=== PATIENT | male | born 1950 | race Caucasian/White ===

== ENCOUNTER 2018-07-12 07:07 | Emergency (ER) | payer MEDICARE, OTHER ==
[~2018-07-12] VITALS: Ht 172.7 cm; Wt 68.0 kg
[2018-07-12] MEDS ORDERED: OLANZAPINE 10 MG VIAL IM ONE ×4 (07:25→09:00)
--- NOTE | 2018-07-12 07:25 | NUR ---
SHERRI, FOUND HIM AT [facility] IN THE BOX, +SI, PER EMS HE RAN INTO TRAFFIC. TO ER BED 15, HOOKED TO MONITOR, KEPT WARM AND SAFE, AWAITING MD VALERIO.
--- NOTE | 2018-07-12 07:26 | NUR ---
DR MASTERS AT BEDSIDE
[2018-07-12 07:45] LABS: BASOPHILS # (AUTO) 0.1 /CMM (0.0-0.2); BASOPHILS % (AUTO) 1.4 % (0.0-2.0); EOSINOPHILS % (AUTO) 1.2 % (0.0-6.0); HEMATOCRIT 43 % (39-51); HEMOGLOBIN 14.1 g/dL (13.5-17.5); LYMPHOCYTES # (AUTO) 1.9 /CMM (0.8-4.8); MEAN CORPUSCULAR HGB CONC 33 g/dl (31.0-36.0); MEAN CORPUSCULAR VOLUME 88 fL (80-96); MONOCYTES # (AUTO) 0.5 /CMM (0.1-1.30); MONOCYTES % (AUTO) 6.6 % (2.0-12.0); NEUTROPHILS # (AUTO) 4.6 /CMM (1.8-8.9); NEUTROPHILS % (AUTO) 63.8 % (43.0-81.0); PLATELET COUNT (AUTO) 283 /CMM (150-450); RED BLOOD CELL COUNT(AUTO) 4.85 MIL/uL (4.5-6.0); WHITE BLOOD COUNT (AUTO) 7.2 K/uL (4.3-11.0)
[2018-07-12 07:51] LABS: CALCIUM, SERUM 8.6 mg/dL (8.5-10.1); POTASSIUM 4.4 mmol/L (3.5-5.1)
[2018-07-12 08:04] LABS: ALBUMIN 3.7 g/dL (3.4-5.0); BILIRUBIN,DIRECT 0.1 mg/dL (0.0-0.2); BILIRUBIN,TOTAL 0.4 mg/dL (0.2-1.0); SALICYLATE 0.8 mg/dL (2.8-20.0)
--- NOTE | 2018-07-12 08:12 | NUR ---
PT REMOVING MONITORING LINES, TRYING TO GET OUT OF BED AND WANTS TO LEAVE HOSPITAL. AWARE, SECUTITY, RN AND TECH ASKED THE PATIENT TO GO BACK TO BED. PT STILL INSISTING TO GO. MD VERBALLY ORDERED MEDICAL RESTRAINTS.
--- NOTE | 2018-07-12 15:30 | NUR ---
PROVIDED W MEAL TRAY. TOLERATED PO WELL.
[2018-07-12 16:07] LABS: APPEARANCE,URINE CLEAR (CLEAR); BILIRUBIN,URINE NEGATIVE (NEGATIVE); BLOOD, URINE NEGATIVE Ery/uL (NEGATIVE); COLOR,URINE YELLOW (YELLOW); KETONES,URINE NEGATIVE (NEGATIVE); LEUKOCYTE ESTERASE ,URINE NEGATIVE (NEGATIVE); NITRITE, URINE NEGATIVE (NEGATIVE); PROTEIN,URINE NEGATIVE (NEGATIVE); UGLUCOSE NEGATIVE (NEGATIVE)
--- NOTE | 2018-07-12 16:12 | NUR ---
HAYDEE FROM CRISIS TEAM CALLED TO BE UPDATED THAT PT IS NOT AWAKE AND URINE SAMPLE HAS BEEN COLLECTED
[2018-07-12 16:16] LABS: BACTERIA,URINE None seen /HPF (None Seen); RBC,URINE 0-2 /HPF (0-2); SQUAMOUS EPITHELIAL CELL,UR 0-2 /HPF (None Seen); URINE AMORPHOUS PHOSPHATES Many /HPF (None Seen); WBC,URINE 0-2 /HPF (0-3)
[2018-07-12 16:30] VITALS: BP 128/84
--- NOTE | 2018-07-12 16:35 | NUR ---
TEACHER VOCAL PINKY AT BEDSIDE
--- NOTE | 2018-07-12 16:46 | NUR ---
IV removed. Catheter intact and site benign. Pressure and 4x4 applied to site. No bleeding noted. name band removed. Patient given written and verbal discharge instructions. Patient verbalizes understanding of instructions. Patient is ambulatory with steady gait. Wearing jacket, longsleeves, khaki pants and rubbershoes. Refuses offer of usp placement. Patient given list of available shelters in surrounding area. Pt given sandwich before discharge.
== END 2018-07-12 16:52 | disposition home or self-care (01) ==
LOC: ER 07:10
DX: F10.129 Alcohol abuse with intoxication, unspecified (principal); Y90.7 Blood alcohol level of 200-239 mg/100 ml; Z59.0 Homelessness; Z04.6 Encounter for general psychiatric examination, requested by authority
CPT/HCPCS: 36415; 80048; 80076; 80305; 80307 ×2; 81001; 85025; 96372 ×2; 99283; G0480; J3490 ×2; 81000-TC

== ENCOUNTER 2018-09-25 14:10 | Emergency (ER) | payer MEDICARE, OTHER ==
[~2018-09-25] VITALS: Ht 177.8 cm; Wt 70.3 kg
[2018-09-25] MEDS ORDERED: LIDOCAINE 1%-EPI 1:100,000 20 ML VIAL ONE (14:29)
[2018-09-25 14:53] LABS: BASOPHILS # (AUTO) 0.1 /CMM (0.0-0.2); BASOPHILS % (AUTO) 1.3 % (0.0-2.0); EOSINOPHILS % (AUTO) 0.9 % (0.0-6.0); HEMATOCRIT 40 % (39-51); HEMOGLOBIN 13.2 g/dL (13.5-17.5); LYMPHOCYTES # (AUTO) 1.4 /CMM (0.8-4.8); LYMPHOCYTES % (AUTO) 24.1 % (20.0-44.0); MEAN CORPUSCULAR HGB CONC 33 g/dl (31.0-36.0); MEAN CORPUSCULAR VOLUME 88 fL (80-96); MONOCYTES # (AUTO) 0.5 /CMM (0.1-1.30); MONOCYTES % (AUTO) 8.4 % (2.0-12.0); NEUTROPHILS # (AUTO) 3.9 /CMM (1.8-8.9); NEUTROPHILS % (AUTO) 65.3 % (43.0-81.0); PLATELET COUNT (AUTO) 263 /CMM (150-450); RED BLOOD CELL COUNT(AUTO) 4.56 MIL/uL (4.5-6.0); WHITE BLOOD COUNT (AUTO) 5.9 K/uL (4.3-11.0)
[2018-09-25 15:00] LABS: CALCIUM, SERUM 8.5 mg/dL (8.5-10.1); CARBON DIOXIDE 26 mmol/L (21-32); CHLORIDE 107 mmol/L (98-107); CREATININE 1.1 mg/dL (0.6-1.3); GLUCOSE 101 mg/dL (74-106); POTASSIUM 4.1 mmol/L (3.5-5.1); SODIUM SERUM 141 mmol/L (136-145); UREA NITROGEN, BLOOD 29 mg/dL (7-18)
[2018-09-25] MEDS ORDERED: HALOPERIDOL 1 MG TABLET PO ONE (15:00)
[2018-09-25] MEDS ORDERED: diphenhydrAMINE HCL 25 MG CAPSULE PO ONE (15:00)
[2018-09-25] MEDS ORDERED: LIDOCAINE 1%-EPI 1:100,000 20 ML VIAL TP ONE (15:00)
[2018-09-25] MEDS ORDERED: LORAZEPAM 1 MG TABLET PO ONE (15:00)
[2018-09-25] MEDS ORDERED: diphenhydrAMINE HCL 50 MG CAPSULE ONE (15:01)
[2018-09-25] MEDS ORDERED: LORAZEPAM 1 MG TABLET ONE (15:01)
[2018-09-25] MEDS ORDERED: HALOPERIDOL 5 MG TABLET ONE (15:02)
[2018-09-25 15:07] LABS: ALANINE AMINOTRANSFERASE 22 U/L (12-78); ALBUMIN 3.4 g/dL (3.4-5.0); ALCOHOL, BLOOD < 3 mg/dL (0-0); ALKALINE PHOSPHATASE 78 U/L (46-116); ASPARTATE AMINOTRANSFERASE 14 U/L (15-37); BILIRUBIN,DIRECT 0.1 mg/dL (0.0-0.2); BILIRUBIN,TOTAL 0.3 mg/dL (0.2-1.0); TOTAL PROTEIN, SERUM 6.5 g/dL (6.4-8.2)
[2018-09-25 15:09] LABS: ACETAMINOPHEN < 10 ug/ml (10-30); SALICYLATE 1.6 mg/dL (2.8-20.0)
--- NOTE | 2018-09-25 15:15 | NUR ---
BIB [address] FOR SELF INFLICTED LAC ON L FOREARM, +SI. PT AAOX4, VSS. RR EVEN & UNLABORED. CALM & COOPERATIVE AT THIS TIME. PT SEEN & EVAL'D BY DR. LONG. MEDICATED ORDERED & WILL CONT TO MONITOR. FEDERICO @ BS.
[2018-09-25 15:24] LABS: APPEARANCE,URINE Clear (CLEAR); BILIRUBIN,URINE Negative (NEGATIVE); BLOOD, URINE Negative Ery/uL (NEGATIVE); COLOR,URINE Yellow (YELLOW); KETONES,URINE Negative (NEGATIVE); LEUKOCYTE ESTERASE ,URINE Negative (NEGATIVE); NITRITE, URINE Negative (NEGATIVE); PH,URINE 5.5 (5.0-8.0); PROTEIN,URINE Negative (NEGATIVE); UGLUCOSE Negative (NEGATIVE); UROBILINOGEN,URINE 0.2 EU/dL (0.2)
--- NOTE | 2018-09-25 17:00 | NUR ---
Patient is resting comfortably in bed with eyes closed. Easily aroused. VSS
--- NOTE | 2018-09-25 17:34 | NUR ---
CALLED TI[employer] CHANG[employer] HAYDEE, 1 HOUR ETA
--- NOTE | 2018-09-25 18:10 | NUR ---
HAYDEE, GOLF COACH @ BS FOR EVAL.
--- NOTE | 2018-09-25 21:31 | NUR ---
PT ACCEPTED TO [facility] ACCEPTING MD: DR. ELLIS NUMBER FOR REPORT: [id number] [id number]. TRIP NUMBER [id number]
[2018-09-25 22:24] VITALS: BP 113/72
--- NOTE | 2018-09-25 22:25 | NUR ---
REPORT GIVEN TO LANDY MICHAEL @ [facility].
== END 2018-09-25 23:21 ==
LOC: ER 14:15
DX: S51.812A Laceration without foreign body of left forearm, initial encounter (principal); R45.851 Suicidal ideations; I10 Essential (primary) hypertension; F10.10 Alcohol abuse, uncomplicated; F15.10 Other stimulant abuse, uncomplicated; F12.10 Cannabis abuse, uncomplicated; Y90.0 Blood alcohol level of less than 20 mg/100 ml; Z87.891 Personal history of nicotine dependence; Z91.5 Personal history of self-harm; W26.8XXA Contact with other sharp object(s), not elsewhere classified, initial encounter; Y93.89 Activity, other specified; Y92.89 Other specified places as the place of occurrence of the external cause; Y99.8 Other external cause status
CPT/HCPCS: 12002; 36415; 80048; 80076; 80305; 80307; 80329; 81001; 85025; 99285; G0480; J3490; Q0163; 81000-TC

== ENCOUNTER 2020-02-21 12:44 | Emergency (ER) | payer MEDICARE, OTHER ==
[~2020-02-21] VITALS: Ht 177.8 cm; Wt 74.4 kg
[2020-02-21 13:30] LABS: BILIRUBIN,URINE Negative (NEGATIVE); COLOR,URINE YELLOW (YELLOW); LEUKOCYTE ESTERASE ,URINE Negative (NEGATIVE); NITRITE, URINE Negative (NEGATIVE); PROTEIN,URINE Negative (NEGATIVE); UGLUCOSE Negative (NEGATIVE)
--- NOTE | 2020-02-21 13:30 | NUR ---
KATERYNA MCKEON 881 FROM A [facility] TELLING THEM THAT "IF YOU DON'T TAKE ME TO THE HOSPITAL, I WILL KILL MYSELF"
[2020-02-21 13:45] LABS: BACTERIA,URINE Rare /HPF (None Seen); SQUAMOUS EPITHELIAL CELL,UR 0-2 /HPF (None Seen); WBC,URINE 0-2 /HPF (0-3)
[2020-02-21 13:49] LABS: ALANINE AMINOTRANSFERASE 109 U/L (12-78); ALBUMIN 4.1 g/dL (3.4-5.0); ALCOHOL, BLOOD 79 mg/dL (0-0); ALKALINE PHOSPHATASE 92 U/L (46-116); ASPARTATE AMINOTRANSFERASE 86 U/L (15-37); BILIRUBIN,DIRECT 0.1 mg/dL (0.0-0.2); BILIRUBIN,TOTAL 0.7 mg/dL (0.2-1.0); CALCIUM, SERUM 9.2 mg/dL (8.5-10.1); CARBON DIOXIDE 20 mmol/L (21-32); CREATININE 0.9 mg/dL (0.6-1.3); GLUCOSE 89 mg/dL (74-106); TOTAL PROTEIN, SERUM 8.6 g/dL (6.4-8.2); UREA NITROGEN, BLOOD 16 mg/dL (7-18)
[2020-02-21 13:50] LABS: ACETAMINOPHEN 0 ug/ml (10-30)
[2020-02-21 15:02] LABS: BASOPHILS # (AUTO) 0.1 /CMM (0.0-0.2); BASOPHILS % (AUTO) 1.3 % (0.0-2.0); EOSINOPHILS % (AUTO) 0.7 % (0.0-6.0); HEMATOCRIT 47 % (39-51); HEMOGLOBIN 15.4 g/dL (13.5-17.5); LYMPHOCYTES # (AUTO) 1.2 /CMM (0.8-4.8); LYMPHOCYTES % (AUTO) 15.9 % (20.0-44.0); MEAN CORPUSCULAR HGB CONC 33 g/dl (31.0-36.0); MEAN CORPUSCULAR VOLUME 93 fL (80-96); MONOCYTES # (AUTO) 0.5 /CMM (0.1-1.30); MONOCYTES % (AUTO) 6.3 % (2.0-12.0); NEUTROPHILS # (AUTO) 5.7 /CMM (1.8-8.9); NEUTROPHILS % (AUTO) 75.8 % (43.0-81.0); PLATELET COUNT (AUTO) 248 /CMM (150-450); RED BLOOD CELL COUNT(AUTO) 5.07 MIL/uL (4.5-6.0); WHITE BLOOD COUNT (AUTO) 7.5 K/uL (4.3-11.0)
--- NOTE | 2020-02-21 15:02 | NUR ---
PATIENT PROVIDED FOOD.
[2020-02-21 15:08] LABS: CHLORIDE 103 mmol/L (98-107); SODIUM SERUM 139 mmol/L (136-145)
--- NOTE | 2020-02-21 15:38 | NUR ---
COVID SWAB SENT TO LAB
[2020-02-21] MEDS ORDERED: KETOROLAC TROMETHAMINE INJ 30 MG/ML VIAL IV ONE (16:00)
[2020-02-21] MEDS ORDERED: KETOROLAC TROMETHAMINE INJ 30 MG/ML VIAL ONE (16:06)
--- NOTE | 2020-02-21 16:30 | NUR ---
AMBIKA AT BEDSIDE FOR EVAL.
--- NOTE | 2020-02-21 17:00 | NUR ---
SW met with the patient at bedside. Patient is a 69 year-old male. Patient presented to [facility] ED with suicidal ideation to run into traffic. Patient stated that he is "ready to end his life". Patient reports that he is homeless. Patient reported he was residing behind a [employer]. Patient informed this SW that the patient has a suicidal attempt approximately 2 years ago and patient showed this SW scarring on patient's arm. Patient reports a history of depression and anxiety. Patient reports that approximately one week ago he ran out of medications. Patient and SW discussed the voluntary psychiatric hospitalization and patient was in agreement. Patient signed homeless patient waiver form, SW placed it in patient's chart. SW and patient discussed homeless community resources and patient was receptive to receiving these resources. Plan: SW to refer patient to [facility] for voluntary psychiatric hospitalizations. SW informed Micah regarding this referral. SW faxed clinicals, pending COVID results. ED LANDY Dillon will fax COVID results to when lab provides an update.
--- NOTE | 2020-02-21 17:01 | NUR ---
SW provided the following resources to the patient. Substance Abuse resources provided included: [facility] Substance Abuse Self-Helpline ([facility]) ; CRI -[facility]LP [address] [facility]. [place] [id number] ; [facility] [address] [facility] [address] ; [facility] [address] [place]. [place] [phone] ; [facility] [address] [facility] [phone] ; [facility] [address] [facility] [address] ; [facility] 909 [facility] [phone] ; [facility]stance Abuse Helpline([facility] ; [facility] Former[facility] ; [facility]; [facility] [place]; Cri-Help [place]; I-ADARP Inter [place] [facility] Gino Valadez; [facility] [place]; [facility] [place]; [facility] [place]; [facility], [facility]. [place]; Alcoholics Anonymous -SFV; Ho-Racs-Ejarggi ; Marijuana Anonymous -SFV; Narcotics Anonymous www.na.org. Hygiene: [facility] [place] [facility]: [address] Mat [address]. [place] ; [facility] [address] [facility] ; [facility] 2067 Gino Garcia . Food Resources: [place] [facility] at [facility]- [address] [place]; Meet Each Need with Dignity ([facility]) [address] [facility] [place]; [facility] Food Pantry [address] [place]; [facility] [address] Jo[place]. Mental Health resources provided: [facility] [address] [place] [address] ; [facility] [address] [facility] [address], [place], [place] [phone] ; [facility] Mental [facility] [address] Carolyne Salgado Dr[place], [place] [phone] ; [facility] [address] [place], [place] [id number] Healthcare Clinics: [facility] 6551 [facility], [address] [place]. [place] ; [facility] [address] [facility] [address] [place] [address]; [facility] [address] [facility]. [place] [phone] Winter Shelters: [facility] [place] [facility] [address] [facility] [place] [address] 67 Coed; [facility] [place] AV YouthBuild [address] [address] [facility], [address] 27 [place]; Hope of the [place]* [facility] Confidential (please call for location) 52 [place]; [facility] [place] [facility] [address] [place] [address] 75 [place]; [facility] [place] Mira [place] [address] [place], [address] 15 Women; [facility] [address] [facility] [address] 49 Co[place]; First To Serve* [facility] 7600 [facility], [address] 73 Coed; [facility] [address], [address] 20 Women; Home At Last [facility] [address] [facility], [address] 63 Co[place]; [facility] [address], [address] 20 Women; Home At Last [facility] [address] [facility], [address] 63 Coed; Home at Last [facility] Facility [address], [address] 20 Males; Home At Last [facility] [address] , [address] 20 MICAH; [facility] [place] * Library [address].[facility] [address] 80 Coed; Winter Fdc Program Sites Transportation moss picker at [facility] Stop (near the Gas Station) - Daisy Ferrara/JOCELYNN [place] [address] Time: 3:30p.m. to 4:15p.m. and [facility] at [address] [facility] [address] Time: 5:00p.m. No walk-ins allowed. Individuals must be picked up at [facility] ([address] [place] [address]) to access the site. Transportation by bus.
--- NOTE | 2020-02-21 18:02 | NUR ---
SPOKE WITH YOSEF FROM [facility] Y[facility]AN [facility]. ACCEPTED UNDER THE CARE OF DR. CASTRO (PSYCH) AND DR. MCGARRY (MEDICAL). [phone] [phone], NUMBER TO GIVE REPORT.
--- NOTE | 2020-02-21 18:13 | NUR ---
AM WEST CINDY AT 2045.
--- NOTE | 2020-02-21 18:23 | NUR ---
PATIENT A/OX4, BREATHING EVEN AND UNLABORED, NO SOB NOTED. NEEDS ATTENDED.
--- NOTE | 2020-02-21 18:30 | NUR ---
ATTEMPTED TO GIVE REPORT TO ARACELI BILL. WILL CALL BACK.
--- NOTE | 2020-02-21 18:40 | NUR ---
received a call from Nereyda from [facility] regarding patient and she will ask her mechanical maintenance supervisor if they will accept patient. Will call back.
--- NOTE | 2020-02-21 21:08 | NUR ---
[facility] INTAKE ELE REFUSED PT.
--- NOTE | 2020-02-21 21:29 | NUR ---
PT MADE AWARE REGARDING [facility] UNABLE TO TAKE HIM. PT VERBALIZE UNDERSTANDING.
--- NOTE | 2020-02-22 01:09 | NUR ---
PT REQUESTING TO SEE JIVE DEVELOPER IN AM. PT REMAINS CALM AND COOPERATIVE AT THIS TIME.
--- NOTE | 2020-02-22 06:36 | NUR ---
[facility] REGARDING PT STATES "WE ARE TRYING TO SEE IF WE [facility] AND WE WILL CALL YOU BACK FOR UPDATES."
--- NOTE | 2020-02-22 10:27 | NUR ---
FLOORING MACHINE OPERATOR WILL FOLLOW UP WITH SO YENI FOR ADMISSION
--- NOTE | 2020-02-22 11:02 | NUR ---
Received a call from Michelle [facility] intakecall report to Kendrick [phone]
--- NOTE | 2020-02-22 11:29 | NUR ---
Insulation Cutter Consult: SW met with a 69 year old homeless patient in the waiting room. Pt states that he had been waiting for about 21 hours and was requesting medications, food, and a place to reside. Pt appears to be alert and oriented x4 (time, place, self and situation). Pt appears to be in an anxious mood and presents with a distressed affect. Pt currently endorses suicidal ideation with a plan to run in front of a car. Pt denies homicidal ideation as well as auditory and visual hallucinations. Pt appears to be disheveled, ungroomed, and malodorous. Pt presents appropriately dressed but the attire presents as requiring cleaning. Pt states that he has been suffering from anxiety and depression. Pt has psychotropic medications but has not been compliant with them for about one month. Pt states that he needs his medications as soon as possible. Pt appears to be ambulatory and does not seem to require any assistance. ANKUR had the pt sign a homeless waiver and placed it in the pts chart with the homeless resources that were provided. Homeless resources included shelters, food robertson, showers, hot meals, health clinics, mental health clinics and substance abuse referrals. Mental health and health clinics include [facility] [address] [place] [address] ([phone]); [facility] [address] [place] [address] ([phone]); a list of medical clinics; [facility] [address] [facility] [address], [place]. [place], ; [facility] [address] [facility], [address], [place]. ANKUR Provided [facility] [address] [place] [address]: ([phone]). ANKUR provided the pt with referrals to [facility] Substance Abuse Self-helpline ([phone]); [facility] [address] [place] [address] ([phone]); [facility] [address] [facility] [address] ([phone]); [facility] ([phone]); [facility] ([phone]); [facility] ([phone]); [facility] ([phone]). Pt was referred to [facility] by the Emergency Room staff and SW followed up with Micah ([phone]) regarding bed availability. ANKUR was informed that the pts referral was being reviewed by the staff and that a bed is being held pending the review. ANKUR will follow up at a later time. Plan: Pt will be discharged to [facility] for a voluntary psychiatric admission.
--- NOTE | 2020-02-22 12:06 | NUR ---
Goldbeater Consult: ANKUR faxed a referral to [facility] to the fax number: [phone]. ANKUR will follow up on the referral.
--- NOTE | 2020-02-22 12:11 | NUR ---
Addendum to Social Work Discharge Note Shannan will fax information to [facility] ([phone]) and there is possibility that the pt. will be accepted at [facility] ( a [facility] facility). dairy farmworker jalyn follow up.
--- NOTE | 2020-02-22 14:31 | NUR ---
RECEIVED CALL FROM SYLVESTER CRUZ FOR UPDATES. AWAITING ACCEPTANCE
--- NOTE | 2020-02-22 14:39 | NUR ---
Social Work Discharge Note: Pt was accepted to [facility] per Rommel ([phone] ext [phone]). Pt was accepted by the following two accepting MDs: Dr. Aguirre (psych) and Dr. Mars (calibration laboratory technician). Pt was accepted to Bed 53A. Nurse to nurse report number is . Ambulance will be ordered to transport the pt. Addendum: 02/22/20 at 1442 by ANKUR FRANCO [facility] located at [address], [place] [address].
--- NOTE | 2020-02-22 15:11 | NUR ---
CALLED [facility] [phone] FOR TRANSPORT ETA 6470.
[2020-02-22 15:28] VITALS: BP 128/81
--- NOTE | 2020-02-22 15:31 | NUR ---
Report given to Carola BILL for lydia
--- NOTE | 2020-02-22 17:15 | NUR ---
Patient eloped from facility. ER MD notified.
== END 2020-02-22 17:15 | disposition left against medical advice (07) ==
LOC: ER 12:49
DX: R45.851 Suicidal ideations (principal); Z59.0 Homelessness; I10 Essential (primary) hypertension; H54.8 Legal blindness, as defined in USA; R74.02 Elevation of levels of lactic acid dehydrogenase [LDH]; G89.29 Other chronic pain; M25.511 Pain in right shoulder; M79.604 Pain in right leg
CPT/HCPCS: 36415; 80048; 80076; 80299; 80307; 80320; 81001; 85025; 87426; 96374; 99285; J1885; C9803; G0480

== ENCOUNTER 2020-08-05 18:32 | Emergency (ER) | payer MEDICARE, OTHER ==
[~2020-08-05] VITALS: Ht 175.3 cm; Wt 83.9 kg
--- NOTE | 2020-08-05 18:32 | NUR ---
PT BIB [employer] FROM [employer] STREET C/O SI "I WANT TO RUN THRU TRAFFIC" PT IS AAOX4, NOT IN RESPIRATORY DISTRESS, NOTED ELEVATED HEART RATE, HOOKED TO LATHER APPRENTICE, SITTER AT BEDSIDE. KEPT RESTED AND COMFORTABLE. WILL CONTINUE TO MONITOR.
--- NOTE | 2020-08-05 18:54 | NUR ---
SEEN AND EXAMINED BY .
--- NOTE | 2020-08-05 19:04 | NUR ---
URINE SPECIMEN COLLECTED AND SENT TO LAB.
--- NOTE | 2020-08-05 19:15 | NUR ---
COVID SWAB COLLECTED AND SENT TO THE LAB.
[2020-08-05 19:57] LABS: BILIRUBIN,URINE SMALL (NEGATIVE); COLOR,URINE YELLOW (YELLOW); LEUKOCYTE ESTERASE ,URINE NEGATIVE (NEGATIVE); NITRITE, URINE NEGATIVE (NEGATIVE); PH,URINE 5.5 (5.0-8.0); PROTEIN,URINE TRACE mg/dl (NEGATIVE); UGLUCOSE NEGATIVE (NEGATIVE)
[2020-08-05] MEDS ORDERED: OLANZAPINE 10 MG VIAL IM ONE ×2 (20:08→20:30)
[2020-08-05 20:09] LABS: WBC,URINE 0-2 /HPF (0-3)
[2020-08-05 20:10] LABS: BACTERIA,URINE RARE /HPF (None Seen); HYALINE CASTS, URINE Many /LPF (None Seen); MUCUS,URINE Few /LPF (None Seen); SQUAMOUS EPITHELIAL CELL,UR 0-2 /HPF (None Seen)
[2020-08-05 21:01] LABS: BASOPHILS # (AUTO) 0.1 /CMM (0.0-0.2); BASOPHILS % (AUTO) 1.1 % (0.0-2.0); EOSINOPHILS % (AUTO) 0.8 % (0.0-6.0); HEMATOCRIT 40 % (39-51); HEMOGLOBIN 13.4 g/dL (13.5-17.5); LYMPHOCYTES # (AUTO) 0.6 /CMM (0.8-4.8); LYMPHOCYTES % (AUTO) 9.7 % (20.0-44.0); MEAN CORPUSCULAR HGB CONC 33 g/dl (31.0-36.0); MEAN CORPUSCULAR VOLUME 90 fL (80-96); MONOCYTES # (AUTO) 0.6 /CMM (0.1-1.30); MONOCYTES % (AUTO) 8.7 % (2.0-12.0); NEUTROPHILS # (AUTO) 5.3 /CMM (1.8-8.9); NEUTROPHILS % (AUTO) 79.7 % (43.0-81.0); PLATELET COUNT (AUTO) 240 /CMM (150-450); RED BLOOD CELL COUNT(AUTO) 4.44 MIL/uL (4.5-6.0); WHITE BLOOD COUNT (AUTO) 6.6 K/uL (4.3-11.0)
[2020-08-05 21:17] LABS: ALANINE AMINOTRANSFERASE 62 U/L (12-78); ALBUMIN 3.5 g/dL (3.4-5.0); ALCOHOL, BLOOD 26 mg/dL (0-0); ALKALINE PHOSPHATASE 80 U/L (46-116); ASPARTATE AMINOTRANSFERASE 59 U/L (15-37); BILIRUBIN,DIRECT 0.4 mg/dL (0.0-0.2); BILIRUBIN,TOTAL 1.1 mg/dL (0.2-1.0); CALCIUM, SERUM 8.6 mg/dL (8.5-10.1); CARBON DIOXIDE 22 mmol/L (21-32); CHLORIDE 105 mmol/L (98-107); CREATININE 1.2 mg/dL (0.6-1.3); GLUCOSE 94 mg/dL (74-106); POTASSIUM 3.2 mmol/L (3.5-5.1); SODIUM SERUM 143 mmol/L (136-145); UREA NITROGEN, BLOOD 15 mg/dL (7-18)
[2020-08-05 21:27] LABS: ACETAMINOPHEN < 2 ug/ml (10-30)
[2020-08-05] MEDS ORDERED: POTASSIUM CHLORIDE 20 MEQ TAB.PRT.SR PO ONE (22:00)
--- NOTE | 2020-08-06 06:11 | NUR ---
TEODORO'Supa BY CRISIS TEAM DANIELLE; PT CLEARED FOR DISCHARGE
--- NOTE | 2020-08-06 06:11 | NUR ---
Patient discharged to home in stable condition. Written and verbal after care instructions given. Patient verbalizes understanding of instruction.
[2020-08-06 06:12] VITALS: BP 150/75
== END 2020-08-06 06:12 | disposition home or self-care (01) ==
LOC: ER 18:36
DX: R45.851 Suicidal ideations (principal); F15.129 Other stimulant abuse with intoxication, unspecified; Z82.49 Family history of ischemic heart disease and other diseases of the circulatory system; H54.8 Legal blindness, as defined in USA; I10 Essential (primary) hypertension; Z59.0 Homelessness; F17.200 Nicotine dependence, unspecified, uncomplicated; E87.6 Hypokalemia; Z20.822 Contact with and (suspected) exposure to COVID-19
CPT/HCPCS: 36415; 80048; 80076; 80143; 80307; 80320; 81001; 85025; 87426; 96372; 99285; J3490; C9803; G0480